=== PATIENT | female | born 1985 | race Caucasian/White ===

== ENCOUNTER 2024-08-16 21:29 | Emergency (ER) | payer BC | END 2024-08-16 23:07 | disposition home or self-care (01) | LOC: MW.ED 21:29 | DX: S82.831A Other fracture of upper and lower end of right fibula, initial encounter for closed fracture (principal); Z88.0 Allergy status to penicillin; Z88.5 Allergy status to narcotic agent; Z91.040 Latex allergy status; Z79.899 Other long term (current) drug therapy; W01.0XXA Fall on same level from slipping, tripping and stumbling without subsequent striking against object, initial encounter; Y93.89 Activity, other specified | CPT/HCPCS: 29515; 73590-26-RT; 73590-RT; 73610-26-RT; 73610-RT; 99283; 99283-25 ==